=== PATIENT | male | born 1960 | race Caucasian/White ===

== ENCOUNTER 2018-03-28 17:57 | Emergency (ER) | payer MEDICAID ==
[~2018-03-28] VITALS: Ht 165.1 cm; Wt 54.4 kg
[2018-03-28 19:44] LABS: BASOPHIL % 1.1 % (0-2); PLATELET COUNT 141 x10^3mcL (130-400)
[2018-03-28 19:46] LABS: CALCIUM 9.2 mg/dL (8.5-10.1); CHLORIDE SERUM 94 mmol/L (98-107); CREATININE SERUM 1.1 mg/dL (0.7-1.3); GFR1 > 60 mL/min; GLUCOSE SERUM 94 mg/dL (74-106); POTASSIUM SERUM 3.7 mmol/L (3.5-5.1); SODIUM SERUM 131 mmol/L (136-145)
[2018-03-28 19:47] LABS: RED CELL DISTRIBUTION WIDTH 17.6 % (11.5-14.5)
[2018-03-28 19:51] LABS: ALBUMIN 3.8 g/dL (3.4-5.0); ALKALINE PHOSPHATASE 96 U/L (46-116); ALT/SGPT 49 U/L (16-63); AST/SGOT 63 U/L (15-37); BILIRUBIN TOTAL 0.6 mg/dL (0.20-1.00)
[2018-03-28 19:54] LABS: TOTAL PROTEIN, SERUM 9.3 g/dL (6.4-8.2)
[2018-03-28 20:48] VITALS: BP 108/58
== END 2018-03-28 20:48 | disposition home or self-care (01) ==
LOC: ED 17:57
PROVIDERS: Emergency Medicine
DX: S20.219A Contusion of unspecified front wall of thorax, initial encounter (principal); F10.20 Alcohol dependence, uncomplicated; D72.819 Decreased white blood cell count, unspecified; D69.6 Thrombocytopenia, unspecified; W01.0XXA Fall on same level from slipping, tripping and stumbling without subsequent striking against object, initial encounter; Y93.89 Activity, other specified; Y92.89 Other specified places as the place of occurrence of the external cause; Y99.8 Other external cause status
CPT/HCPCS: 36415; Q0092